=== PATIENT | male | born 1990 | race Caucasian/White ===

== ENCOUNTER 2021-06-09 10:11 | Emergency (ER) | payer OTHER, SELFPAY ==
--- NOTE | ~2021-06-09 | XR_ITS ---
EXAMINATION: XR chest 2V EXAM DATE: 06/09/2021 10:56 INDICATION: Chest pain. TECHNIQUE: Frontal and lateral projections of the chest obtained and reviewed. There is no prior jaret dy for comparison. FINDINGS: The lungs are clear. There are no pleural effusions. The cardiomediastinal silhouette is within normal limits. There is no pneumothorax suspected. The bones and soft tissues are unremarkab le. IMPRESSION: No acute cardiopulmonary findings. Reviewed, dictated and finalized at location A.
[2021-06-09 10:11] VITALS: BP 128/79; PULSE 86; RESP 20; TEMP 36.6; O2SAT 99
--- NOTE | 2021-06-09 10:29 | ECG_ITS ---
Measurements Intervals [place] Rate: 106 P: 66 [place]: 150 QRS: 64 QRSD: 98 T: 48 QT: 338 QTc: 450 Interpretive Statements SINUS TACHYCARDIA BORDERLINE ST-T WAVE ABNORMALITY- ANTEROLAT/INF LEADS BASELINE ARTIFACT- I, III, AVL ABNORMAL ECG Electronically Signed On 06-11-2021 7:47:52 CDT by Sergio Martin D.O.
[2021-06-09] MEDS: PANTOPRAZOLE SODIUM IV 40 MG VIAL IV PUSH (10:40)
[2021-06-09] MEDS: MAG HYDROX/ALUMINUM HYD/SIMETH 30 ML, PHENobarb/HYOSCY/ATROPINE/SCOP 32.4 MG, LIDOCAINE... PO (10:42)
[2021-06-09] MEDS: SODIUM CHLORIDE 0.9% IV 100 ML (10:43)
[2021-06-09 10:51] LABS: Basophils Absolute Auto 0.06 K/mm3 (0.00-0.10); Basophils Percent Auto 1.2 % (0.0-1.0); Hematocrit 45.5 % (40.0-54.0); Hemoglobin 15.4 g/dL (14.0-18.0); Immature Granulocyte Absolute 0.01 K/mm3 (0.00-0.00); Immature Granulocyte Percent A 0.2 % (0.0-0.0); Lymphocytes Absolute Auto 1.68 K/mm3 (1.10-4.50); Lymphocytes Percent Auto 33.8 % (18.0-42.0); Mean Corpuscular HGB Conc 33.8 g/dL (32.0-36.0); Mean Corpuscular Hemoglobin 30.2 pg (27.0-31.0); Mean Corpuscular Volume 89.2 fL (78.0-102.0); Mean Platelet Volume 8.9 fl (8.7-11.0); Monocytes Absolute Auto 0.42 K/mm3 (0.10-0.90); Monocytes Percent Auto 8.5 % (2.0-11.0); Neutrophils Absolute Auto 2.6 K/mm3 (1.7-7.2); Neutrophils Percent Auto 52.3 % (50.0-70.0); Platelet Count Result 241 K/mm3 (150-420); Red Cell Distribution Width 12.1 % (11.6-14.4)
[2021-06-09 11:04] LABS: D Dimer 0.19 mg/L (0.19-0.50)
[2021-06-09 11:09] LABS: Alanine Aminotransferase 49 U/L (16-63); Albumin Level 3.9 g/dL (3.4-5.0); Alkaline Phosphatase 73 U/L (46-116); Anion Gap 9 mmol/L (8-16); Aspartate Amino Transferase 19 U/L (15-37); Bilirubin,Total 0.3 mg/dL (0.00-1.00); Blood Urea Nitrogen 10 mg/dL (7-18); Calcium 8.7 mg/dL (8.5-10.1); Carbon Dioxide 28 mmol/L (21-32); Chloride 107 mmol/L (98-108); Estimated Glomerular Filt Rate > 60; Glucose 108 mg/dL (70-99); Osmolality Calculated 298 mOsm/kg (285-295); Potassium 4.2 mmol/L (3.5-5.1); Sodium 144 mmol/L (136-145); Troponin I 5.5 ng/L (0.00-60.4)
--- NOTE | 2021-06-09 11:34 | ED.CHESTPAIN ---
HPI - Chest Pain General Chief Complaint: Chest Pain Stated Complaint: chest pain Source: patient Mode of arrival: ambulatory History of Present Illness HPI narrative: this is a 31-year-old male that presents with some discomfort in his chest along with epigastric discomfort has been off and on for weeks with some history of GERD patient has a smoking history but some quit smoking approximately 4 weeks ago no family history of heart disease. The patient has been having off and on chest discomfort but more epigastric is currently on Pepcid twice a day with some moderate relief with no nausea vomiting no abdominal pain no flank pain no shortness of breath. complaint: chest discomfort Onset (ago): week(s) Timing of current episode: episodic Prior episodes: Yes Onset: during rest and awoke with symptoms Pain location: subxiphoid Pain radiation: none Severity: mild Quality: heaviness and burning Relieving factors: antacids Related Data Allergies Allergy/AdvReac Type Severity Reaction Status Date / Time Penicillins Allergy Verified 04/28/13 17:45 Review of Systems Review of Systems: All systems reviewed & are unremarkable except as noted in HPI and below PMFSH Past Medical History Medical History GERD (gastroesophageal reflux disease) Exam Const: General: no acute distress and alert Orientation/consciousness: patient oriented x3 Eyes: Conjunctivae: conjunctivae normal Pupils: Equal, round and reactive pupils present Chest: Chest palpation & inspection: normal inspection of the chest Resp: Effort & Inspection: normal respiratory effort Auscultation: clear to auscultation bilaterally Cardio: Rate: regular rate Rhythm: regular rhythm GI: GI Palp: Yes Soft to palpation Urinary Catheter: Urinary Catheter: patent and draining Skin: General skin exam: normal color Rashes: no rashes Neuro: General: patient oriented x3 and moves all extremities Extrem: General: normal to inspection and no pedal edema Psych: Mental Status: mental status grossly normal Affect: normal affect Course Course Emergency Course: patient received a GI cocktail and IV Protonix labs reviewed with patient along with chest x-ray and EKG was reviewed patient has significant relief with a GI cocktail and IV Protonix. Vital Signs Vital signs: Vital Signs Temperature 36.6 C 06/09/21 10:11 Pulse Rate 86 06/09/21 10:11 Respiratory Rate 20 06/09/21 10:11 Blood Pressure 128/79 06/09/21 10:11 Pulse Oximetry 99 06/09/21 10:11 Temperature 36.6 C 06/09/21 10:11 Pulse Rate 86 06/09/21 10:11 Respiratory Rate 20 06/09/21 10:11 Blood Pressure 128/79 06/09/21 10:11 Pulse Oximetry 99 06/09/21 10:11 MDM - Chest Pain Lab Data Result diagrams: 06/09/21 10:29 06/09/21 10:29 Labs: Lab Results 06/09/21 06/09/21 06/09/21 Range/Units 10: 10: 10:29 WBC 5.0 (4.8-10.8) K/mm3 RBC 5.10 (4.70-6.10) M/mm3 Hgb 15.4 (14.0-18.0) g/dL Hct 45.5 (40.0-54.0) % MCV 89.2 (78.0-102.0) fL MCH 30.2 (27.0-31.0) pg MCHC 33.8 (32.0-36.0) g/dL RDW 12.1 (11.6-14.4) % Plt Count 241 (150-420) K/mm3 MPV 8.9 (8.7-11.0) fl Immature Gran % (Auto) 0.2 H (0.0-0.0) % Neut % (Auto) 52.3 (50.0-70.0) % Lymph % (Auto) 33.8 (18.0-42.0) % [place] % (Auto) 8.5 (2.0-11.0) % Eos % (Auto) 4.0 (1.0-6.0) % Baso % (Auto) 1.2 H (0.0-1.0) % Lymph # (Auto) 1.68 (1.10-4.50) K/mm3 [place] # (Auto) 0.42 (0.10-0.90) K/mm3 Eos # (Auto) 0.20 (0.02-0.50) K/mm3 Baso # (Auto) 0.06 (0.00-0.10) K/mm3 Abs Immat Gran (auto) 0.01 H (0.00-0.00) K/mm3 Absolute Neuts (auto) 2.6 (1.7-7.2) K/mm3 Absolute Nucleated RBC 0.00 (0.00-0.00) K/mm3 Nucleated RBC % 0.0 (0-0.0) % D-Dimer 0.19 (0.19-0.50) mg/L Sodium 144 (136-145) mmol/L Potassium 4.2 (3.5-5.1) mmo
[2021-06-09 11:43] VITALS: BP 129/69; PULSE 87; RESP 16; TEMP 36.6; O2SAT 99
== END 2021-06-09 11:47 | disposition home or self-care (01) ==
PROVIDERS: Emergency Provider Emergency Medicine; PCP Family Medicine
DX: R07.89 Other chest pain (principal)
CPT/HCPCS: 36415; 71046; 80053; 84484; 85025; 85380; 93005; 96374; 99283; 99284; A9270; C9113

== ENCOUNTER 2024-01-07 12:57 | Emergency (ER) | payer OTHER, SELFPAY ==
[2024-01-07 12:57] VITALS: BP 131/95; PULSE 89; RESP 18; TEMP 36.6; O2SAT 98
--- NOTE | 2024-01-07 13:01 | ED.SKABFB ---
HPI - Skin/Abscess/Foreign Bdy General Chief complaint: Skin/Abscess/Foreign Body Stated complaint: left elbow insect bite/swelling Source: patient Mode of arrival: ambulatory Limitations: no limitations History of Present Illness HPI narrative: 33-year-old male presents to the ER with a 1 day history of -- left elbow pustule which is exuding pus. Measures 1 cm. No fever or chills. No history of any bites. No tetanus immunization in the last 5 years complaint: abscess/boil Onset (ago): day(s) ( 1 day) Tetanus up to date: no Location: LUE ( left elbow) Severity: mild Pain Consistency: constant Relieving factors: none Exacerbating factors: none Associated symptoms: denies other symptoms Treatments prior to arrival: none Related Data Allergies Allergy/AdvReac Type Severity Reaction Status Date / Time Penicillins Allergy Verified 04/28/13 17:45 Review of Systems Review of Systems: All systems reviewed & are unremarkable except as noted in HPI and below PMFSH Past Medical History Medical History GERD (gastroesophageal reflux disease) Exam Narrative: Afebrile Const: General: healthy appearing and no acute distress Nutritional Appearance: well nourished Orientation/consciousness: patient oriented x3 Limitations: no limitations HENMT: Head: normal to inspection Ears: external ears normal Face/Nose/Sinus: Normal external nose present Face and sinus: normal facial exam Mouth: Yes Normal oral and palatal mucosa present Eyes: Conjunctivae: conjunctivae normal Pupils: Equal, round and reactive pupils present EOM: EOMs intact bilaterally Direct Ophthalmoscopy: no photophobia Neck: Neck: normal visual inspection, no lymphadenopathy and no meningeal signs Chest: Chest palpation & inspection: normal inspection of the chest Resp: Effort & Inspection: normal respiratory effort Auscultation: clear to auscultation bilaterally Cardio: Rate: regular rate Rhythm: regular rhythm GI: Auscultation: normal bowel sounds : General: Yes no CVA tenderness Back/Spine/Pelvis: Back: no CVA tenderness Skin: General skin exam: normal color Rashes: no rashes Other: left elbow pustule measuring 1 cm. No regional lymphadenopathy. Neuro: General: patient oriented x3, moves all extremities, no meningeal signs and no focal motor deficits Cranial nerves: Yes Nystagmus not present Speech: normal speech Gait exam (Neuro): Normal gait present Extrem: General: normal to inspection, no clubbing, cyanosis or edema and no pedal edema Psych: Mental Status: mental status grossly normal Affect: normal affect Attitude: cooperative Course Course Emergency Course: Left elbow pustule-- will treat with clindamycin Vital Signs Vital signs: Vital Signs Temperature 36.6 C 01/07/24 12:57 Pulse Rate 89 01/07/24 12:57 Respiratory Rate 18 01/07/24 12:57 Blood Pressure 131/95 H 01/07/24 12:57 Pulse Oximetry 98 01/07/24 12:57 Oxygen Delivery Room Air 01/07/24 12:57 Temperature 36.6 C 01/07/24 12:57 Pulse Rate 89 01/07/24 12:57 Respiratory Rate 18 01/07/24 12:57 Blood Pressure 131/95 H 01/07/24 12:57 Pulse Oximetry 98 01/07/24 12:57 Oxygen Delivery Room Air 01/07/24 12:57 MDM - Skin/Abscess/Foreign Bdy MDM Narrative Medical decision making narrative: left elbow pustule Differential Diagnosis Differential diagnosis: Likely viral exanthem and herpes zoster Discharge Plan Discharge Clinical Impression: Pustule Patient Disposition: Home, Self-Care Condition: Stable Instructions: Antibiotic Form, Abscess (ED) Patient Language: Estonian Prescriptions: No Action pantoprazole [Protonix] 40 mg tablet,delayed release (DR/EC) 40 mg PO QAM 28 Days Qty: 28 0RF Follow-up/Referrals: Judson,MD Chad [Primary Care Provider] - Time of Disposition: 13:07
[2024-01-07] MEDS: TETANUS,DIPHTHERIA,AC PERTUSSIS ADULT 0.5 ML (ADACEL) IM (13:24)
== END 2024-01-07 13:29 | disposition home or self-care (01) ==
LOC: CHSED 13:15
PROVIDERS: Emergency Provider Internal Medicine Critical Care Medicine; PCP Family Medicine
DX: L08.9 Local infection of the skin and subcutaneous tissue, unspecified (principal); Z23 Encounter for immunization
CPT/HCPCS: 90471; 90715; 99282